=== PATIENT | male | born 1955 | race Caucasian/White ===

== ENCOUNTER 2016-09-01 23:46 | Emergency (ER) | payer OTHER ==
[~2016-09-01] VITALS: Ht 177.8 cm; Wt 100.0 kg
[2016-09-01 23:47] VITALS: BP 175/97; PULSE 77; RESP 18; TEMP 97.7; O2SAT 98
[2016-09-02] MEDS ORDERED: FAMOTIDINE 20 MG/2 ML VIAL IV PUSH ONE
[2016-09-02] MEDS ORDERED: SODIUM CHLORIDE 0.9% FLUSH 5 ML FLUSH IVF PRN
[2016-09-02] MEDS ORDERED: methylPREDNISolone SOD SUCC 125 MG/2 ML VIAL IVP ONE
[2016-09-02] MEDS ORDERED: diphenhydrAMINE HCL 50 MG/ML VIAL IVP ONE
[2016-09-02] MEDS ORDERED: EPINEPHrine HCL (1:1000) 1 MG/ML VIAL IM ONE
--- NOTE | 2016-09-02 00:19 | PD ---
HPI Chief Complaint: Allergic/Adverse Reaction Time Seen by Provider: 23:58 Travel History International Travel<30 days: No Contact w/Intl Traveler<30days: No Traveled to known affect area: No History of Present Illness HPI 61-year-old male complains of itching rash on the face and swelling of the throat. Patient states that symptoms started about 2 hours prior coming to the emergency room. Patient is not sure of exposure. Patient denies any chest pain or shortness of breath. Patient states that his voice changed and he has trouble swallowing. PFSH Past Medical History Diabetes: Yes Patient Takes Glucophage: No Diminished Hearing: No Myocardial Infarction: Yes Past Surgical History Coronary Stent: Yes Social History Alcohol Use: Yes (OCC) Tobacco Use: No Substance Use: No Allergies-Medications (Allergen,Severity, Reaction): Coded Allergies: No Known Allergies (Unverified , 09/01/16) Review of Systems General / Constitutional: No: Fever Eyes: No: Visual changes HENT: No: Headaches Cardiovascular: No: Chest Pain or Discomfort Respiratory: No: Shortness of Breath Gastrointestinal: No: Abdominal Pain Genitourinary: No: Dysuria Musculoskeletal: No: Pain Skin: No Rash Neurologic: No: Weakness Psychiatric: No: Depression Endocrine: No: Polydipsia Hematologic/Lymphatic: No: Easy Bruising Physical Exam Narrative GENERAL: Well-nourished, well-developed patient. SKIN: Warm and dry. Patient has hives over the face and upper chest and neck. HEAD: Normocephalic. EYES: No scleral icterus. No injection or drainage. Patient has mild edema of the uvula and the pharynx area. NECK: Supple, trachea midline. No JVD or lymphadenopathy. CARDIOVASCULAR: Regular rate and rhythm without murmurs, gallops, or rubs. RESPIRATORY: Breath sounds equal bilaterally. No accessory muscle use. No stridor or wheezes. GASTROINTESTINAL: Abdomen soft, non-tender, nondistended. MUSCULOSKELETAL: No cyanosis, or edema. BACK: Nontender without obvious deformity. No CVA tenderness. Neurologic exam normal. Data Data Last Documented VS Vital Signs Date Time Temp Pulse Resp B/P Pulse Ox O2 Delivery O2 Flow Rate FiO2 09/01/16 23:47 97.7 77 18 175/97 98 Room Air Orders Ecg Monitoring (09/01/16 23:58) Iv Access Insert/Monitor (09/01/16 23:58) Oximetry (09/01/16 23:58) Diphenhydramine Inj (Benadryl Inj) (09/02/16 00:00) Methylprednisolone So Succ Inj (Solumedr (09/02/16 00:00) Famotidine Inj (Pepcid Inj) (09/02/16 00:00) Sodium Chloride 0.9% Flush (Ns Flush) (09/02/16 00:00) Epinephrine (1:1000) Inj (Adrenalin (1:1 (09/02/16 00:00) MDM Medical Decision Making Medical Screen Exam Complete: Yes Emergency Medical Condition: Yes Differential Diagnosis Differential diagnosis including acute allergic reaction, anaphylactoid reaction. Narrative Course 61-year-old male itching rash on the face chest and upper neck and edema of the pharynx area. Epinephrine 0.3 cc IM. Solu-Medrol 125 mg IV. Benadryl 50 g IV. Pepcid 20 mg IV. 1:15 AM. Reexamination patient feeling much better. The rash is improved. No edema or swelling of the pharynx. Diagnosis Primary Impression: Allergic reaction Qualified Code: T78.40XA - Allergic reaction, initial encounter Patient Instructions: General Instructions Additional Instructions: Take medications as directed. Follow-up with personal physician. Return if worse. Med/Other Pt SpecificInfo: Prescription(s) given Scripts Ranitidine (Zantac)300 Mg Lor594 Mg PO DAILY #10 TAB Ref 0 Prov:Shadi Miramontes MD 09/02/16 Cetirizine (Zyrtec Allergy)10 Mg Cap10 Mg PO DAILY #10 CAP Ref 0 Prov:Shadi Miramontes MD 09/02/16 Prednisone 20 Mg Tab20 Mg PO BID #10 TAB Prov:Shadi Miramontes MD 09/02/16 Disposition: 01 DISCHARGE HOME Condition: Stable Shadi Miramontes MD Sep 02, 2016 00:19
[2016-09-02] MEDS ORDERED: ZANT300T PO (01:16)
[2016-09-02] MEDS ORDERED: PRED20 PO (01:16)
[2016-09-02] MEDS ORDERED: ZYRT10CA PO (01:16)
== END 2016-09-02 01:23 | disposition home or self-care (01) ==
LOC: NEPC 23:46
DX: T78.3XXA Angioneurotic edema, initial encounter (principal); T78.40XA Allergy, unspecified, initial encounter; E11.9 Type 2 diabetes mellitus without complications; X58.XXXA Exposure to other specified factors, initial encounter
CPT/HCPCS: 96372; 96374; 96375; 99282; J0171; J1200; J2930